=== PATIENT | male | born 1945 | race Two or more races ===

== ENCOUNTER 2024-05-01 10:49 | Emergency (ER) | payer MEDICARE, MEDICAID, SELFPAY ==
[2024-05-01 11:22] VITALS: BP 124/75; PULSE 98; RESP 18; TEMP 38.9; O2SAT 95
[2024-05-01 11:37] VITALS: BMI 36.1
--- NOTE | 2024-05-01 11:43 | PC.NURSE ---
patient brought in by daughter today. daughter states they went to [facility] originally for cough and [facility] doctor told daughter to bring dad to ER due to vital signs and symptoms. patients rectal temp 102.1 and 95% on 2L NC patient denies any difficulty breathing
--- NOTE | 2024-05-01 11:47 | EKG_ITS ---
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
[2024-05-01 11:49] VITALS: PULSE 87; RESP 18
--- NOTE | 2024-05-01 11:49 | PD.EDADULT ---
ED General RME/HPI General Chief complaint: General Adult/Misc Complain Stated complaint: FREQUENT URINATION, SOB, COUGH, FEVER Time Seen by Provider: 05/01/24 11:46 Arrival date/time: 05/01/24 10:49 CC: Fever cough HPI ongoing for the past 3 to 4 days family mother is at bedside state they were seen at the clinic. Patient denies shortness of breath but states she has had a persistent cough with fever the last 3 to 4 days, no other family members are ill seen at the clinic tested for influenza which was negative and return referred to the emergency room. Patient is awake alert oriented denies any chest pain nausea vomiting or diarrhea. Patient only takes [id number] vitamins family ember state that he is quite healthy. No other complaints at this time. Related Data Previous Rx's ?Medication ?Instructions ?Recorded amoxicillin 875 mg-potassium 1 tab PO BID #14 tabs 05/01/24 clavulanate 125 mg tablet Allergies Allergy/AdvReac Type Severity Reaction Status Date / Time No Known Allergies Allergy Verified 05/01/24 10:51 Review of Systems Review of Systems Narrative Review of Systems: GEN: + fever, no chills, no weight loss EYES: No discharge, no visual changes, no pain HEENT: No ear pain, no congestion, no sore throat PULM: No shortness of breath, + cough, no congestion CV: No chest pain, no dyspnea on exertion, no palpitations GI: No nausea, no vomiting, no diarrhea, no pain, no constipation : No frequency, no urgency, no dysuria MUSC/SKEL: No joint pain, no back pain SKIN: No rash PSYCH: No hallucinations, no depression HEME/LYMPH: No easy bleeding or bruising tendencies NEURO: No weakness, no headache Past Medical History Past Medical History CARDIAC: Negative Cardiac Disorders or Congestive Heart Failure RESPIRATORY: Negative Chronic Obstructive Pulmonary Disease (COPD) or Asthma GENITOURINARY: Positive Kidney Stones; Negative Renal Disease ENDOCRINE: Negative Diabetes Mellitus Type 1 or Diabetes Mellitus Type 2 HEMATOLOGIC: Negative Sickle Cell Disease Social History SMOKING STATUS: Never smoker ED Exam Narrative Physical exam: [General: Obese not in any acute distress Head normocephalic HEENT: Within acceptable limits Neck is supple nontender Chest equal chest rise nontender to palpation Respiratory: Clear to auscultation no wheezes crackles or rubs CV: Rate rhythm is regular no murmurs rubs or clicks Abdomen is distended secondary to body habitus soft nontender no masses positive bowel sounds all 4 quadrants Back: No CVA tenderness no spinous process tenderness from cervical spine thoracic and lumbar spine Skin: Intact no petechiae rash induration ulceration or crepitus Extremities: Moving all extremity against resistance cap refill less than 2 seconds neurosensory intact. No lower extremity edema Neuro: Awake alert oriented x3 Glascow coma 15 no focal deficits] Course Quality Measures none Orders Category Date Time Status Bedside COVID-19 Antigen Test NOW Care 05/01/24 11:54 Completed Bedside Influenza A&B Antigen Test NOW Care 05/01/24 11:54 Completed Hall Cleaner STAT Care 05/01/24 11:47 Completed Continuous Pulse Oximetry STAT Care 05/01/24 11:47 Completed EKG (ED ONLY) *Do not use* NOW Care 05/01/24 11:47 Completed In and Out Catheter X1PRN Care 05/01/24 11:47 Completed Insert IV NOW Care 05/01/24 11:47 Completed NPO STAT Care 05/01/24 11:47 Completed Strict Intake and Output Routine Care 05/01/24 11:47 Ordered EKG (ED Only) Stat Exams 05/01/24 11:47 Draft XR chest 1V Stat Exams 05/01/24 12:52 Completed B-Type Natriuretic Peptide Stat Lab 05/01/24 11:59 Completed Blood Culture (Lab) Stat Lab 05/01/24 12:02 Received CBC Stat Lab 05/01/24 12:02 Completed Comprehensive Metabolic Panel Stat Lab 05/01/24 12:02 Completed LDH (Lactate Dehydrogenase) Stat Lab 05/01/24 12:02 Completed Lactate (Lactic Acid) Stat Lab 05/01/24 12:02 Completed Lipase Stat Lab 05/01/24 12:02 Completed Magnesium Stat Lab 05/01/24 12:02 Completed Partial Thromboplastin Time Stat Lab 05/01/24 12:02 Completed Path Review Blood Smear Stat Lab 05/01/24 12:02 Completed Phosphorous Stat Lab 05/01/24 12:02 Completed Procalcitonin Stat Lab 05/01/24 12:02 Completed Prothrombin Time with INR Stat Lab 05/01/24 12:02 Completed Troponin I Stat Lab 05/01/24 12:02 Completed Troponin I Stat Lab 05/01/24 13:47 Completed Urinalysis Stat Lab 05/01/24 12:47 Completed Urine Culture Stat Lab 05/01/24 12:47 Received Acetaminophen Tab [Tylenol Tab] Med 05/01/24 11:47 Discontinued 650 mg PO X1 ONE Ibuprofen Tab [Motrin Tab] Med 05/01/24 11:54 Discontinued 800 mg PO X1 ONE cefTRIAXone/D5w 1gm IV premix [Rocephin/D5w 1gm IV Med 05/01/24 15:42 Discontinued premix] 50 ml IV X1 Oxygen Delivery NOW RT 05/01/24 11:47 Completed Vital Signs Vital signs: Vital Signs Temperature 102.1 F H 05/01/24 11:22 Pulse Rate 98 05/01/24 11:22 Respiratory Rate 18 05/01/24 11:22 Blood Pressure 124/75 05/01/24 11:22 Pulse Oximetry (%) 95 05/01/24 11:22 Oxygen Delivery Method Nasal Cannula 05/01/24 11:22 Oxygen Flow Rate 2 05/01/24 11:22 [facility] Patient data External records reviewed:: [facility] previous records Clinical information provided by:: patient and family Social determinants that could affect healthcare access:: none Patient has the following chronic illnesses:: None How is presenting disease/condition affected by chronic disease/condition?: uneffected by Evaluation data The following diagnostics were reviewed and interpreted by me:: lab results, radiology exam(s) and EKG tracing(s) Lab and/or radiology exams considered but not ordered:: EKG performed at 1240 shows a ventricular rate of 78 NM interval 193 QRS of 106 QTc of 389 this is normal sinus rhythm. CBC Coags show no acute finding The CMP mildly elevated glucose, no other electrolyte imbalances renal impairment transaminitis or T. bili elevation BMP is negative Troponin is elevated at 0.056 Lipase is 35 Procalcitonin is within acceptable limits Delta troponin is downtrending at 0.052 at this time I suspected stress-induced patient has had no chest pain and is not a diabetic. Chest x-ray written as a may be early pneumonia. Will treat the patient as such Interpretation Summary: Pneumonia fever Medications Medications considered but not ordered:: None Medication administrations:: Medication Administration History Discontinued Medications Acetaminophen (Acetaminophen 325 Mg Tablet) 650 mg PO X1 ONE Stop: 05/01/24 11:48 Last Admin: 05/01/24 11:52 Dose: Not Given Documented By: EF Non-Admin Reason: Cancelled by Provider Ceftriaxone Sodium/Dextrose (Rocephin/D5w 1gm Iv Premix) 50 mls @ 100 mls/hr IV X1 ONE Stop: 05/01/24 16:11 Last Infusion: 05/01/24 16:46 Dose: Infused Documented By: Admin: 05/01/24 15:49 Dose: 100 mls/hr Documented By: EF Ibuprofen (Ibuprofen Tab 400 Mg Tablet) 800 mg PO X1 ONE Stop: 05/01/24 11:55 Last Admin: 05/01/24 12:02 Dose: 800 mg Documented By: EF None Consultations Consultation(s) initiated? (list below): No Diagnosis Differential Diagnosis ED Complaint MDM: Shortness of breath pneumonia sepsis Most likely diagnosis given after review of the tests above:: Pneumonia Admission Indicated Admission indicated?: not indicated Explain why admission is indicated or not indicated:: Stable for outpatient follow-up Admission Request Was there a request for admission?: No Disposition Plan Disposition Plan: Discharge Discharge Attestation Discharge Attestation: The patient and all family members were given an opportunity to ask questions and understood the discharge instructions. Discharge instructions specifically effects, indications for sooner follow up or return to the emergency department, and the expected course of current diagnosis. Patient condition: Stable Medical Decision Making Differential Diagnosis Differential Diagnosis: Shortness of breath pneumonia sepsis Lab Data 05/01/24 12:02 05/01/24 12:02 Labs: Lab Results 05/01/24 05/01/24 05/01/24 Range/Units 11:59 12:02 12:47 WBC 7.7 (3.8-10.6) Thou/mm3 RBC 3.13 L (4.50-5.90) Miln/mm3 Hgb 12.0 L (13.5-16.0) g/dL Hct 35.1 L (41.0-53.0) % MCV 112 H (80-100) fL MCH 38.3 H (25.0-35.0) pg MCHC 34.2 (31.0-37.0) g/dl RDW Std Deviation 55.1 H (35.1-43.9) fL Plt Count 251 (140-440) Thou/mm3 Neut % (Auto) 78 (37-80) % Lymph % (Auto) 12 (10-50) % Worth % (Auto) 9 (0-12) % Eos % (Auto) 0 (0-10) % Baso % (Auto) 0 (0-2.5) % Neut # (Auto) 6.0 (1.8-7.7) Thou/mm3 Lymph # (Auto) 0.9 L (1.0-4.8) Thou/mm3 Worth # (Auto) 0.7 (0.0-0.8) Thou/mm3 Eos # (Auto) 0.0 (0.0-0.5) Thou/mm3 Baso # (Auto) 0.0 (0.0-0.2) Thou/mm3 Immature Gran # (Auto) 0.09 H (0.00-0.00) Thou/mm3 Absolute Nucleated RBC 0.00 (0.00-0.00) Thou/mm3 Immature Gran % 1 H (0-0) % Nucleated RBC % 0 (0) /100 WBC Smear Path Review Sent to Pathologist PT 10.9 (9.0-12.2) Seconds INR 1.0 (0.9-1.3) APTT 29.5 (22.0-36.0) Seconds Sodium 135 L (136-145) mMol/L Potassium 4.0 (3.4-5.1) mMol/L Chloride 100 (98-107) mMol/L Carbon Dioxide 25.6 (20.0-31.0) mMol/L Anion Gap 9 (7-16) BUN 13 (9-23) mg/dL Creatinine 1.1 (0.6-1.3) mg/dL Estim Creat Clear Calc 54.8 L (>60) mL/min eGFR > 60 (60 - ) See Note BUN/Creatinine Ratio 12 (12-20) Ratio Glucose 137 H (74-106) mg/dL Calculated Osmolality 272 L (275-295) Lactic Acid 1.9 (0.4-2.0) mMol/L Calcium 9.3 (8.3-10.6) mg/dL Corrected Calcium 9.3 (8.5-10.1) mg/dL Phosphorus 2.0 L (2.4-5.1) mg/dL Magnesium 1.9 (1.6-2.6) mg/dL Total Bilirubin 0.6 (0.3-1.2) mg/dL AST 32 (0-34) U/L ALT 24 (10-49) U/L Alkaline Phosphatase 76 (46-116) U/L Lactate Dehydrogenase 188 (120-246) U/L Troponin I 0.056 H* (0.0-0.045) ng/mL B-Natriuretic Peptide 44 (0-100) pg/mL Total Protein 7.8 (5.7-8.2) gm/dL Albumin 5.0 H (3.4-4.8) gm/dL Globulin 2.8 (2.3-3.5) gm/dL Albumin/Globulin Ratio 1.8 (1.2-2.2) Lipase 35 (12-53) U/L Procalcitonin 0.13 (0.0-0.49) ng/ml Ur Collection Type Clean Catch Urine Color Yellow (Lt Yel-Yel) Urine Clarity Clear (Clear/Hazy) Urine pH 6.5 (5.0-7.0) Ur Specific [place] 1.020 (1.001-1.035) Urine Protein Trace (Neg - Trace) Urine Glucose (UA) Negative (Negative) Urine Ketones Negative (Negative) Urine Blood Trace (Negative) Urine Nitrite Negative (Negative) Urine Bilirubin Negative (Negative) Urine Urobilinogen (Auto) Negative (0.0-1.0) mg/dL Ur Leukocyte Esterase Negative (Negative) Urine RBC 1 (0-3) /hpf Urine WBC 1 (0-5) /hpf Ur Squamous Epith Cells 0 (0-5) /hpf Urine Bacteria None (None) Hyaline Casts < 1 (0-1) /hpf 05/01/24 Range/Units 13:47 WBC (3.8-10.6) Thou/mm3 RBC (4.50-5.90) Miln/mm3 Hgb (13.5-16.0) g/dL Hct (41.0-53.0) % MCV (80-100) fL MCH (25.0-35.0) pg MCHC (31.0-37.0) g/dl RDW Std Deviation (35.1-43.9) fL Plt Count (140-440) Thou/mm3 Neut % (Auto) (37-80) % Lymph % (Auto) (10-50) % Worth % (Auto) (0-12) % Eos % (Auto) (0-10) % Baso % (Auto) (0-2.5) % Neut # (Auto) (1.8-7.7) Thou/mm3 Lymph # (Auto) (1.0-4.8) Thou/mm3 Worth # (Auto) (0.0-0.8) Thou/mm3 Eos # (Auto) (0.0-0.5) Thou/mm3 Baso # (Auto) (0.0-0.2) Thou/mm3 Immature Gran # (Auto) (0.00-0.00) Thou/mm3 Absolute Nucleated RBC (0.00-0.00) Thou/mm3 Immature Gran % (0-0) % Nucleated RBC % (0) /100 WBC Smear Path Review PT (9.0-12.2) Seconds INR (0.9-1.3) APTT (22.0-36.0) Seconds Sodium (136-145) mMol/L Potassium (3.4-5.1) mMol/L Chloride (98-107) mMol/L Carbon Dioxide (20.0-31.0) mMol/L Anion Gap (7-16) BUN (9-23) mg/dL Creatinine (0.6-1.3) mg/dL Estim Creat Clear Calc (>60) mL/min eGFR (60 - ) See Note BUN/Creatinine Ratio (12-20) Ratio Glucose (74-106) mg/dL Calculated Osmolality (275-295) Lactic Acid (0.4-2.0) mMol/L Calcium (8.3-10.6) mg/dL Corrected Calcium (8.5-10.1) mg/dL Phosphorus (2.4-5.1) mg/dL Magnesium (1.6-2.6) mg/dL Total Bilirubin (0.3-1.2) mg/dL AST (0-34) U/L ALT (10-49) U/L Alkaline Phosphatase (46-116) U/L Lactate Dehydrogenase (120-246) U/L Troponin I 0.052 H* (0.0-0.045) ng/mL B-Natriuretic Peptide (0-100) pg/mL Total Protein (5.7-8.2) gm/dL Albumin (3.4-4.8) gm/dL Globulin (2.3-3.5) gm/dL Albumin/Globulin Ratio (1.2-2.2) Lipase (12-53) U/L Procalcitonin (0.0-0.49) ng/ml Ur Collection Type Urine Color (Lt Yel-Yel) Urine Clarity (Clear/Hazy) Urine pH (5.0-7.0) Ur Specific [place] (1.001-1.035) Urine Protein (Neg - Trace) Urine Glucose (UA) (Negative) Urine Ketones (Negative) Urine Blood (Negative) Urine Nitrite (Negative) Urine Bilirubin (Negative) Urine Urobilinogen (Auto) (0.0-1.0) mg/dL Ur Leukocyte Esterase (Negative) Urine RBC (0-3) /hpf Urine WBC (0-5) /hpf Ur Squamous Epith Cells (0-5) /hpf Urine Bacteria (None) Hyaline Casts (0-1) /hpf Discharge Plan Plan Patient Disposition: HOME (Self Care) Patient condition on transfer: Stable Prescriptions/Referrals Prescriptions/Med Rec: New amoxicillin-pot clavulanate 875-125 mg tablet 1 tab PO BID Qty: 14 0RF Referrals: Maynor Altman MD [Primary Care Provider] - In 1 week Problem List Clinical Impression: Fever, Pneumonia Patient/Caregiver Discharge Instructions Education Materials: ED Pneumonia (Adult) Additional Instructions: Rest for the next 2 to 3 days take the medications as prescribed if there is worsening of symptoms return immediately to the emergency room for reevaluation. Print Language: Omani Stand Alone Forms: Terese Award Info., Patient Portal Info Letter
[2024-05-01 12:02] VITALS: TEMP 38.9
[2024-05-01] MEDS: IBUPROFEN TAB 400 MG TABLET 800 MG PO (12:02)
[2024-05-01 12:17] LABS: Lactate (Lactic Acid) 1.9 mMol/L (0.4-2.0)
[2024-05-01 12:35] LABS: Basophils % (Auto) 0 % (0-2.5); Eosinophils % (Auto) 0 % (0-10); Hematocrit 35.1 % (41.0-53.0); Immature Granulocytes % (Auto) 1 % (0-0); Immature Granulocytes Auto 0.09 Thou/mm3 (0.00-0.00); Lymphocytes # (Auto) 0.9 Thou/mm3 (1.0-4.8); Lymphocytes % (Auto) 12 % (10-50); Mean Corpuscular HGB Conc 34.2 g/dl (31.0-37.0); Mean Corpuscular Hemoglobin 38.3 pg (25.0-35.0); Mean Corpuscular Volume 112 fL (80-100); Monocytes # (Auto) 0.7 Thou/mm3 (0.0-0.8); Monocytes % (Auto) 9 % (0-12); Neutrophils % (Auto) 78 % (37-80); Nucleated Red Blood Cell % 0 /100 WBC (0); Platelet Count 251 Thou/mm3 (140-440); RDW Standard Deviation 55.1 fL (35.1-43.9); Red Blood Count 3.13 Miln/mm3 (4.50-5.90); White Blood Count 7.7 Thou/mm3 (3.8-10.6)
[2024-05-01 12:36] LABS: B-Type Natriuretic Peptide 44 pg/mL (0-100)
[2024-05-01 12:43] LABS: Partial Thromboplastin Time 29.5 Seconds (22.0-36.0); Prothrombin Time 10.9 Seconds (9.0-12.2)
[2024-05-01 12:44] LABS: Alanine Aminotransferase 24 U/L (10-49); Albumin/Globulin Ratio 1.8 (1.2-2.2); Alkaline Phosphatase 76 U/L (46-116); Anion Gap 9 (7-16); Aspartate Amino Transferase 32 U/L (0-34); BUN/Creatinine Ratio 12 Ratio (12-20); Bilirubin,Total 0.6 mg/dL (0.3-1.2); Blood Urea Nitrogen 13 mg/dL (9-23); Calcium 9.3 mg/dL (8.3-10.6); Calcium (Corrected) 9.3 mg/dL (8.5-10.1); Carbon Dioxide 25.6 mMol/L (20.0-31.0); Chloride 100 mMol/L (98-107); Creatinine (Component) 1.1 mg/dL (0.6-1.3); Estimated Creatinine Clearance 54.8 mL/min (>60); Globulin 2.8 gm/dL (2.3-3.5); Glucose 137 mg/dL (74-106); LDH (Lactate Dehydrogenase) 188 U/L (120-246); Lipase 35 U/L (12-53); Magnesium 1.9 mg/dL (1.6-2.6); Osmolality,Calculated 272 (275-295); Procalcitonin 0.13 ng/ml (0.0-0.49); Sodium 135 mMol/L (136-145); Total Protein 7.8 gm/dL (5.7-8.2); eGFR > 60 See Note
[2024-05-01 12:47] LABS: Troponin I 0.056 ng/mL (0.0-0.045)
--- NOTE | 2024-05-01 12:52 | XR_ITS ---
Examination: AP chest single view Technique one AP portable semiupright chest single view Exam date and time: May 01, 2024 1257 hrs. Comparison 01/27/2023 Indications: Coughing fever beginning 2 days ago. Findings: Mild enlargement cardiac contour Mild vascular congestion Increased markings left base retrocardiac obscuring medial portion left hemidiaphragm Pulmonary nodule left lower lung zone again noted Impression: Suspicious for early left base pneumonia
[2024-05-01 13:19] LABS: Collection Type, Urine Clean Catch; Squamous Epithelial Cell,Urine 0 /hpf (0-5)
[2024-05-01 13:30] LABS: Bilirubin,Urine Negative (Negative); Blood,Urine Trace (Negative); Clarity,Urine Clear (Clear/Hazy); Color,Urine Yellow (Lt Yel-Yel); Glucose, Urine Negative (Negative); Hyaline Casts,Urine < 1 /hpf (0-1); Ketones,Urine Negative (Negative); Leukocyte Esterase,Urine Negative (Negative); Nitrite,Urine Negative (Negative); PH,Urine 6.5 (5.0-7.0); Protein,Urine Trace (Neg - Trace); RBC,Urine 1 /hpf (0-3); Urobilinogen,Urine Negative mg/dL (0.0-1.0); WBC,Urine 1 /hpf (0-5)
[2024-05-01 13:31] VITALS: BP 113/62; PULSE 75; RESP 17; TEMP 36.8; O2SAT 95
[2024-05-01 15:13] LABS: Troponin I 0.052 ng/mL (0.0-0.045)
[2024-05-01] MEDS: cefTRIAXone/D5w 1gm IV premix 50 ML IV (15:49)
[2024-05-01 16:46] VITALS: BP 115/53; PULSE 65; RESP 16; TEMP 36.8; O2SAT 95
[2024-05-01 17:11] LABS: Path Review Blood Smear Sent to Pathologist
== END 2024-05-01 17:13 | disposition home or self-care (01) ==
PROVIDERS: Registered Nurse General Practice; Emergency Provider Emergency Medicine; PCP Family Medicine
DX: J18.9 Pneumonia, unspecified organism (principal)
CPT/HCPCS: 36415; 71045; 80053; 81001; 83605; 83615; 83690; 83735; 83880; 84100; 84145; 84484; 85025; 85610; 85730; 87040; 87077; 87086; 87186; 87400; 87811; 93005; 96365; 99284; J0696; A9270